=== PATIENT | male | born 1980 | race African-American/Black ===

== ENCOUNTER 2018-11-12 14:42 | Emergency (ER) | payer MEDICAID ==
[~2018-11-12] VITALS: Ht 165.1 cm; Wt 72.1 kg
[2018-11-12 14:58] VITALS: BP 171/112; PULSE 115; RESP 17; Ht 165.1 cm; Wt 72.1 kg
--- NOTE | 2018-11-12 18:18 | ERD ---
ER Documentation Chief Complaint Chief Complaint PT HERE FOR EVAL FOR LISA HPI History of Present Illness: 38-year-old male coming in today with complaint of needing paperwork signed for disability but he can get some money. Patient denies any associated symptoms. Patient reports that he is from [place] and he is in town he does not have any more money. Patient reports having sleep in his car last night. Patient reports going to a clinic in was told to come to emergency department for paperwork filled out. At home pharmacological/nonpharmacological treatment for symptoms: Denies Denies social concerns; Denies recent foreign travel ROS All systems reviewed and are negative except as per history of present illness. Allergies Allergies: Coded Allergies: No Known Allergy (Unverified , 11/12/18) PMhx/Soc Medical and Surgical Hx: pt denies Medical Hx, pt denies Surgical Hx Hx Alcohol Use: No Hx Substance Use: No Hx Tobacco Use: No Smoking Status: Never smoker Physical Exam Vitals Vital Signs Date Temp Pulse Resp B/P (MAP) Pulse Ox O2 O2 Flow FiO2 Time Delivery Rate 11/12/18 100.1 115 17 171/112 95 14:58 (131) Physical Exam Const: No acute distress, anxious, irritable Head: Atraumatic Eyes: Normal Conjunctiva ENT: Normal External Ears, Nose and Mouth. Neck: Full range of motion. Resp: Unable to evaluate patient refused Cardio: Unable to evaluate patient refused Abd: Unable to evaluate patient refused Skin: No petechiae or rashes visibly noted Back: Unable to evaluate patient reviews Ext: No cyanosis, or edema Neur: Awake and alert Psych: Anxious Procedures/MDM ED COURSE: ED course includes a thorough examination and history. The patient was stable throughout ED course. I kept the patient and/or family informed of laboratory and diagnostic imaging results throughout the ED course. ED course includes psychosocial rehabilitation counselor consult. Patient refused and said he does not need resources for homeless senior living, but i would like evaluation to ensure the patient does not have any immediate needs MEDICAL DECISION MAKING: Due to patient refusing examination, full medical exam was not completed. Unstable vital signs were not addressed. Patient reports that fever was just b ecause he was hot and had been walking. Patient denies complaints. Informed by nursing staff that when psychosocial rehabilitation counselor got here, patient was not to be found. It appears that patient has eloped. . DISPOSITION: Eloped. DISCLAIMER: Inadvertent spelling and grammatical errors are likely due to EHR/dictation software use and do not reflect on the overall quality of patient care. Also, please note that the electronic time recorded on this note does not necessarily reflect the actual time of the patient encounter. Departure Diagnosis: Primary Impression: Encounter for examination for insurance purposes Additional Impressions: Fever Tachycardia Hypertension Condition: Stable Patient Instructions: High Blood Pressure (Hypertension), Sinus Tachycardia, Fever Control (Adult) Referrals: [facility] YOU HAVE RECEIVED A MEDICAL SCREENING EXAM AND THE RESULTS INDICATE THAT YOU DO NOT HAVE A CONDITION THAT REQUIRES URGENT TREATMENT IN THE EMERGENCY DEPARTMENT. FURTHER EVALUATION AND TREATMENT OF YOUR CONDITION CAN WAIT UNTIL YOU ARE SEEN IN YOUR DOCTORS OFFICE WITHIN THE NEXT 1-2 DAYS. IT IS YOUR RESPONSIBILITY TO MAKE AN APPOINTMENT FOR FOLOW-UP CARE. IF YOU HAVE A PRIMARY DOCTOR --you should call your primary doctor and schedule an appointment IF YOU DO NOT HAVE A PRIMARY DOCTOR YOU CAN CALL OUR PHYSICIAN REFERRAL HOTLINE AT IF YOU CAN NOT AFFORD TO SEE A PHYSICIAN YOU CAN CHOSE FROM THE FOLLOWING [facility] [address] [facility]. [facility] [address] [facility] [address] [facility] [facility] [address] [facility] [facility] [address] [facility]. [facility]. [address] [facility]. [facility] YOU HAVE RECEIVED A MEDICAL SCREENING EXAM AND THE RESULTS INDICATE THAT YOU DO NOT HAVE A CONDITION THAT REQUIRES URGENT TREATMENT IN THE EMERGENCY DEPARTMENT. FURTHER EVALUATION AND TREATMENT OF YOUR CONDITION CAN WAIT UNTIL YOU ARE SEEN IN YOUR DOCTORS OFFICE WITHIN THE NEXT 1-2 DAYS. IT IS YOUR RESPONSIBILITY TO MAKE AN APPOINTMENT FOR FOLOW-UP CARE. IF YOU HAVE A PRIMARY DOCTOR --you should call your primary doctor and schedule and appointment IF YOU DO NOT HAVE A PRIMARY DOCTOR YOU CAN CALL OUR PHYSICIAN REFERRAL HOTLINE AT . IF YOU CAN NOT AFFORD TO SEE A PHYSICIAN YOU CAN CHOSE FROM THE FOLLOWING [facility]: [facility] [address] [place] [address] [facility] [address] [place] [address] [facility] [address] [place] [address] Additional Instructions: Thank you very much for allowing us to participate in your care. Your health and safety is our top priority at [facility]. It is important to read all discharge instructions and education provided in your discharge packet. *Although we are unable to fill out your disability paperwork, I have provided resources for primary care doctors in the local area to get established with care may be able to further assist you* If the symptoms get worse and your provider is unavailable, return to the Emergency Department immediately. PATRICIA QUINTEROS NP Nov 12, 2018 18:18
== END 2018-11-12 16:34 | disposition left against medical advice (07) ==
LOC: FTE 14:42
DX: Z02.6 Encounter for examination for insurance purposes (principal); R50.9 Fever, unspecified; R00.0 Tachycardia, unspecified; I10 Essential (primary) hypertension
CPT/HCPCS: 99282